=== PATIENT | male | born 1955 | race Caucasian/White ===

== ENCOUNTER 2021-10-08 09:12 | Inpatient (IN) | payer MEDICARE, OTHER ==
[~2021-10-08] VITALS: Ht 182.9 cm; Wt 168.1 kg
[~2021-10-08 09:12] MED LIST: FLEXERIL5 MG PO; MEDROL 4MG DOSEP4 MG PO
[2021-10-08 10:29] LABS: BASOPHIL 0.4 % (0-2); EOSINOPHIL 0.2 % (0-7); HCT 49.8 % (42.0-52.0); HGB 17.3 g/dl (13.2-18.0); MCH 31.7 pg (25.0-31.0); MCHC 34.7 g/dL (32.0-36.0); MCV 91.2 fL (78.0-100.0); MONOCYTE 3.5 % (0-12); MPV 10.1 fL (6.0-9.5); NEUTROPHIL 86.2 % (41-80); NRBC 0; PLT 225 K/uL (150-400); RBC 5.46 M/uL (4.70-6.00); RDW 12.7 % (11.5-14.0); WBC 10.7 K/uL (4.0-10.5)
[2021-10-08 10:37] LABS: PROTHROMBIN TIME 12.6 SECONDS (11.8-13.4); PTT 36.5 SECONDS (24.4-34.7)
[2021-10-08 10:38] LABS: D-DIMER 0.48 ug/mLFEU (0.00-0.41)
[2021-10-08 10:48] LABS: LACTIC ACID 1.4 mmol/L (0.4-1.9)
[2021-10-08 10:51] LABS: BILIRUBIN - TOTAL 0.9 mg/dL (0.2-1.0); CREATININE 0.61 mg/dL (0.67-1.17); GLOBULIN (CALCULATION) 5.5 g/dL; MAGNESIUM 1.8 mg/dL (1.8-2.4); POTASSIUM 3.8 mmol/L (3.5-5.1); TOTAL PROTEIN 9.5 g/dL (6.4-8.2)
[2021-10-08 10:52] LABS: CORONAVIRUS 2019 SARS-COV-2 NEGATIVE (NEGATIVE); INFLUENZA A NAA NEGATIVE (NEGATIVE)
[2021-10-08 14:44] LABS: C-REACTIVE PROTEIN 0.9 mg/dL (<=0.90)
[2021-10-08] MEDS ORDERED: PERCOCET 7.5/321 TAB PO (19:37)
[2021-10-08] MEDS ORDERED: DOXEPIN HCL75 MG PO (19:39)
[2021-10-09 05:53] LABS: BASOPHIL 0.5 % (0-2); EOSINOPHIL 0.4 % (0-7); HGB 15.4 g/dl (13.2-18.0); LYMPHOCYTE 14.4 % (15-48); MCH 31.8 pg (25.0-31.0); MCHC 34.2 g/dL (32.0-36.0); MONOCYTE 6.9 % (0-12); MPV 10.2 fL (6.0-9.5); NRBC 0; PLT 227 K/uL (150-400); RBC 4.84 M/uL (4.70-6.00); WBC 12.1 K/uL (4.0-10.5)
[2021-10-09 06:23] LABS: IRON % SATURATION 16.8 %SAT (20-50)
[2021-10-09 07:14] LABS: CREATININE 0.93 mg/dL (0.67-1.17); MAGNESIUM 2.3 mg/dL (1.8-2.4); PHOSPHORUS 6.1 mg/dL (2.6-4.7); POTASSIUM 3.2 mmol/L (3.5-5.1)
[2021-10-10 06:37] LABS: EOSINOPHIL 1.3 % (0-7); HGB 16.2 g/dl (13.2-18.0); LYMPHOCYTE 14.5 % (15-48); MCH 32.5 pg (25.0-31.0); MCHC 34.5 g/dL (32.0-36.0); MCV 94.2 fL (78.0-100.0); MONOCYTE 6.7 % (0-12); MPV 10.4 fL (6.0-9.5); NEUTROPHIL 75.8 % (41-80); NRBC 0; PLT 223 K/uL (150-400); RBC 4.99 M/uL (4.70-6.00); RDW 13.2 % (11.5-14.0); WBC 10.3 K/uL (4.0-10.5)
[2021-10-10 06:59] LABS: IRON % SATURATION 24.2 %SAT (20-50)
[2021-10-10 07:09] LABS: BUN/CREAT RATIO (CALC) 27.1 RATIO; CREATININE 0.7 mg/dL (0.67-1.17); MAGNESIUM 2.3 mg/dL (1.8-2.4); POTASSIUM 3.9 mmol/L (3.5-5.1)
--- NOTE | 2021-10-10 12:19 | NUR ---
PT WILL REQUIRE O2 @ 4l. REFERRAL SENT TO [facility] TO DELIVER A PORTABLE TO THE HOSPITAL AND A CONCENTRATOR TO THE HOME.
--- NOTE | 2021-10-10 13:01 | NUR ---
MET WITH PT. HE ADVISED THAT HE WOULD LIKE HIS O2 FROM [facility] AND WOULD LIKE [facility] FOR HH. PT. WILL D/C HOME. PLEASE NOTIFY [facility] WITH [facility] IF PT DISCHARGES OVER THE WEEKEND. [phone]
[2021-10-11 03:59] LABS: BUN/CREAT RATIO (CALC) 31.1 RATIO; CREATININE 0.74 mg/dL (0.67-1.17); POTASSIUM 3.7 mmol/L (3.5-5.1)
[2021-10-12 06:23] LABS: BASOPHIL 0.7 % (0-2); EOSINOPHIL 0.9 % (0-7); HCT 52.5 % (42.0-52.0); HGB 18.1 g/dl (13.2-18.0); LYMPHOCYTE 17.9 % (15-48); MCH 32.4 pg (25.0-31.0); MCHC 34.5 g/dL (32.0-36.0); MCV 93.9 fL (78.0-100.0); MONOCYTE 6.8 % (0-12); MPV 9.9 fL (6.0-9.5); NRBC 0; PLT 257 K/uL (150-400); RBC 5.59 M/uL (4.70-6.00); RDW 12.9 % (11.5-14.0); WBC 11.5 K/uL (4.0-10.5)
[2021-10-12 06:42] LABS: BUN/CREAT RATIO (CALC) 36.4 RATIO; CREATININE 0.88 mg/dL (0.67-1.17); PHOSPHORUS 4.5 mg/dL (2.6-4.7); POTASSIUM 3.4 mmol/L (3.5-5.1)
[2021-10-12] MEDS ORDERED: LEVEMIR VI100 UNITS/ SC (15:14)
[2021-10-12] MEDS ORDERED: BUMEX1 MG PO (15:14)
[2021-10-12] MEDS ORDERED: REQUIP1 MG PO (15:15)
[2021-10-12] MEDS ORDERED: PREDNISONE 20MG20 MG PO (15:15)
[2021-10-13] MEDS ORDERED: GABAPENTIN 100100 MG PO (19:11)
== END 2021-10-12 16:07 | disposition home or self-care (01) | DRG 205 ==
LOC: FER 09:12 → FMS 12:21
PROVIDERS: Emergency Medicine; Internal Medicine Cardiovascular Disease; Nurse Practitioner; Nurse Practitioner Acute Care; ADMIT Internal Medicine
DX: M94.0 Chondrocostal junction syndrome [Tietze] (principal); J96.01 Acute respiratory failure with hypoxia; J98.11 Atelectasis; E87.3 Alkalosis; E66.2 Morbid (severe) obesity with alveolar hypoventilation; I50.32 Chronic diastolic (congestive) heart failure; Z68.42 Body mass index [BMI] 45.0-49.9, adult; Z20.822 Contact with and (suspected) exposure to COVID-19; I11.0 Hypertensive heart disease with heart failure; E11.65 Type 2 diabetes mellitus with hyperglycemia; E11.40 Type 2 diabetes mellitus with diabetic neuropathy, unspecified; G25.81 Restless legs syndrome; M48.14 Ankylosing hyperostosis [Forestier], thoracic region; F03.90 Unspecified dementia, unspecified severity, without behavioral disturbance, psychotic disturbance, mood disturbance, and anxiety; Z98.1 Arthrodesis status; Z79.899 Other long term (current) drug therapy
CPT/HCPCS: 36415; 36600; 71045; 71275; 72128; 80048; 80053; 80202; 82728; 82803; 83036; 83540; 83550; 83605; 83735; 83880; 84100; 84145; 84484; 85025; 85379; 85610; 85730; 86140; 87040; 87077; 87186; 93005; 94010; 94640; 94660; 94760; 94762; J1170; J1650; J1815; J1885; J1940; J2060; J2270; J2405; J3370; J3475; J7040; J7050; J7512; Q9967; U0002

== ENCOUNTER 2021-10-13 09:37 | Day surgery (SDCO) | payer MEDICARE, OTHER ==
[~2021-10-13] VITALS: Ht 182.9 cm; Wt 161.3 kg
[~2021-10-13 09:37] MED LIST changes: +BUMEX1 MG PO; +DOXEPIN HCL75 MG PO; +LEVEMIR VI100 UNITS/ SC; +PERCOCET 7.5/321 TAB PO; +PREDNISONE 20MG20 MG PO; +REQUIP1 MG PO
[2021-10-13 10:05] LABS: BASOPHIL 0.8 % (0-2); EOSINOPHIL 0.7 % (0-7); HCT 51.1 % (42.0-52.0); LYMPHOCYTE 18.7 % (15-48); MCH 32.7 pg (25.0-31.0); MCHC 35.2 g/dL (32.0-36.0); MCV 92.7 fL (78.0-100.0); MONOCYTE 7.1 % (0-12); MPV 10.2 fL (6.0-9.5); NRBC 0; PLT 274 K/uL (150-400); RBC 5.51 M/uL (4.70-6.00); RDW 12.9 % (11.5-14.0); WBC 13.7 K/uL (4.0-10.5)
[2021-10-13 11:02] LABS: ALBUMIN 3.8 g/dL (3.4-5.0); ALKALINE PHOSHATASE 84 U/L (46-116); ALT <6 U/L (16-63); AST 51 U/L (15-37); BILIRUBIN - TOTAL 1.7 mg/dL (0.2-1.0); BUN 49 mg/dL (7-18); BUN/CREAT RATIO (CALC) 43.4 RATIO; CHLORIDE 96 mmol/L (98-107); CO2 (BICARBONATE) 21 mmol/L (21-32); CREATININE 1.13 mg/dL (0.67-1.17); GLOBULIN (CALCULATION) 4.9 g/dL; GLUCOSE 286 mg/dL (74-106); POTASSIUM 3.7 mmol/L (3.5-5.1); TOTAL PROTEIN 8.7 g/dL (6.4-8.2)
[2021-10-13 12:55] LABS: CORONAVIRUS 2019 SARS-COV-2 NEGATIVE (NEGATIVE); INFLUENZA A NAA NEGATIVE (NEGATIVE)
[2021-10-13] MEDS ORDERED: GABAPENTIN 100100 MG PO (19:11)
[2021-10-14 05:48] LABS: HCT 50.1 % (42.0-52.0); HGB 17.2 g/dl (13.2-18.0); MCHC 34.3 g/dL (32.0-36.0); MCV 93.1 fL (78.0-100.0); RBC 5.38 M/uL (4.70-6.00); RDW 12.7 % (11.5-14.0); WBC 7.5 K/uL (4.0-10.5)
[2021-10-14 06:10] LABS: BUN/CREAT RATIO (CALC) 43.1 RATIO; CREATININE 1.3 mg/dL (0.67-1.17); POTASSIUM 4.4 mmol/L (3.5-5.1)
[2021-10-14 08:18] LABS: ALBUMIN 3.7 g/dL (3.4-5.0); BILIRUBIN - DIRECT 0.5 mg/dL (0.00-0.20); BILIRUBIN - TOTAL 1.5 mg/dL (0.2-1.0); GLOBULIN (CALCULATION) 4.1 g/dL; TOTAL PROTEIN 7.8 g/dL (6.4-8.2)
--- NOTE | 2021-10-15 05:26 | NUR ---
DAUGHTER OF PT: STERLING GARCIA [phone]
[2021-10-15 06:20] LABS: BASOPHIL 0.2 % (0-2); EOSINOPHIL 0 % (0-7); HCT 47.6 % (42.0-52.0); HGB 16.9 g/dl (13.2-18.0); LYMPHOCYTE 9.8 % (15-48); MCH 32.4 pg (25.0-31.0); MCHC 35.5 g/dL (32.0-36.0); MCV 91.4 fL (78.0-100.0); MONOCYTE 4.9 % (0-12); MPV 10.3 fL (6.0-9.5); NEUTROPHIL 84.5 % (41-80); NRBC 0; PLT 251 K/uL (150-400); RBC 5.21 M/uL (4.70-6.00); RDW 12.5 % (11.5-14.0); WBC 10.9 K/uL (4.0-10.5)
[2021-10-15 06:33] LABS: IRON % SATURATION 39.4 %SAT (20-50)
[2021-10-15 06:56] LABS: ALBUMIN 3.6 g/dL (3.4-5.0); BILIRUBIN - DIRECT 0.3 mg/dL (0.00-0.20); BILIRUBIN - TOTAL 1.1 mg/dL (0.2-1.0); BUN/CREAT RATIO (CALC) 45.5 RATIO; CREATININE 0.99 mg/dL (0.67-1.17); GLOBULIN (CALCULATION) 4.4 g/dL; POTASSIUM 4.3 mmol/L (3.5-5.1)
--- NOTE | 2021-10-15 13:17 | NUR ---
PT IS CURRENT WITH [facility] . HE HAS AN O2 CONCENTRATOR AT HOME AND HAS A PORTABLE O2 TANK IN HIS ROOM. HE ALSO HAS A CPAP MACHINE.
[2021-10-15] MEDS ORDERED: REQUIP0.25 MG PO (13:46)
[2021-10-15] MEDS ORDERED: DULCOLAX5 MG PO (13:47)
[2021-10-15] MEDS ORDERED: PANTOPRAZOLE SO40 MG PO (13:48)
[2021-10-15] MEDS ORDERED: LIDOCAINE PAIN1 EACH TOP (13:49)
[2021-10-15] MEDS ORDERED: BACLOFEN 10MG T10 MG PO (14:35)
[2021-10-16 03:10] LABS: HBSAG SCREEN Negative (Negative); HEP A AB, IGM Negative (Negative); HEP B CORE AB, IGM Negative (Negative); HEP C VIRUS AB <0.1 (0.0-0.9)
== END 2021-10-15 16:06 | disposition home health service (06) ==
LOC: FER 09:37 → FMS 15:49
PROVIDERS: Emergency Medicine; Nurse Practitioner; Nurse Practitioner Acute Care; ADMIT Internal Medicine
DX: K80.20 Calculus of gallbladder without cholecystitis without obstruction (principal); N17.9 Acute kidney failure, unspecified; M94.0 Chondrocostal junction syndrome [Tietze]; G89.29 Other chronic pain; M54.9 Dorsalgia, unspecified; G25.81 Restless legs syndrome; E11.40 Type 2 diabetes mellitus with diabetic neuropathy, unspecified; K76.0 Fatty (change of) liver, not elsewhere classified; I11.9 Hypertensive heart disease without heart failure; F03.90 Unspecified dementia, unspecified severity, without behavioral disturbance, psychotic disturbance, mood disturbance, and anxiety; M51.36 Other intervertebral disc degeneration, lumbar region; E66.2 Morbid (severe) obesity with alveolar hypoventilation; Z68.42 Body mass index [BMI] 45.0-49.9, adult; Z79.4 Long term (current) use of insulin; Z79.52 Long term (current) use of systemic steroids; Z79.899 Other long term (current) drug therapy; Z98.1 Arthrodesis status; Z99.81 Dependence on supplemental oxygen; Z20.822 Contact with and (suspected) exposure to COVID-19
CPT/HCPCS: 36415; 36600; 71045; 76705; 78226; 80048; 80053; 80074; 80076; 82140; 82248; 82728; 82803; 82977; 83540; 83550; 83615; 83880; 84145; 84484; 85025; 93005; 94010; 94668; A9537; G0378; J1170; J1650; J1815; J1885; J2270; J2405; J2930; U0002

== ENCOUNTER 2021-11-20 15:14 | Emergency (ER) | payer MEDICARE, OTHER ==
[~2021-11-20 15:14] MED LIST changes: +BACLOFEN 10MG T10 MG PO; +DULCOLAX5 MG PO; +GABAPENTIN 100100 MG PO; +LIDOCAINE PAIN1 EACH TOP; +PANTOPRAZOLE SO40 MG PO; +REQUIP0.25 MG PO
[2021-11-20] MEDS ORDERED: DICLOFENAC SODI50 MG PO (15:46)
== END 2021-11-20 15:52 | disposition home or self-care (01) ==
LOC: FER 15:14
DX: M25.511 Pain in right shoulder (principal); E11.9 Type 2 diabetes mellitus without complications; Z79.4 Long term (current) use of insulin; W19.XXXA Unspecified fall, initial encounter
CPT/HCPCS: 99283; J1885

== ENCOUNTER 2022-04-01 14:03 | Emergency (ER) | payer OTHER ==
[~2022-04-01 14:03] MED LIST changes: +DICLOFENAC SODI50 MG PO
[2022-04-01] MEDS ORDERED: MEDROL 4MG DOSEP4 MG PO (16:42)
== END 2022-04-01 16:56 | disposition home or self-care (01) ==
LOC: FER 14:03
DX: M51.34 Other intervertebral disc degeneration, thoracic region (principal); M51.36 Other intervertebral disc degeneration, lumbar region; I10 Essential (primary) hypertension; E11.9 Type 2 diabetes mellitus without complications; Z79.4 Long term (current) use of insulin; Z79.899 Other long term (current) drug therapy
CPT/HCPCS: 72128; 72131; J1885

== ENCOUNTER 2022-04-02 12:26 | Emergency (ER) | payer OTHER ==
[2022-04-02 13:33] LABS: BASOPHIL 0.5 % (0-2); EOSINOPHIL 0.9 % (0-7); HCT 36.8 % (42.0-52.0); HGB 13.1 g/dl (13.2-18.0); MCH 33.2 pg (25.0-31.0); MCHC 35.6 g/dL (32.0-36.0); MCV 93.2 fL (78.0-100.0); MONOCYTE 7.8 % (0-12); NEUTROPHIL 75.4 % (41-80); NRBC 0; PLT 189 K/uL (150-400); RBC 3.95 M/uL (4.70-6.00); RDW 12.3 % (11.5-14.0); WBC 7.5 K/uL (4.0-10.5)
[2022-04-02 13:39] LABS: INR 0.98 (0.9-1.2); PROTHROMBIN TIME 12.7 SECONDS (11.9-13.9); PTT 31.2 SECONDS (24.9-34.6)
[2022-04-02 13:58] LABS: ALBUMIN 3.3 g/dL (3.4-5.0); ALKALINE PHOSHATASE 80 U/L (46-116); ALT 36 U/L (16-63); AST 15 U/L (15-37); BILIRUBIN - TOTAL 0.8 mg/dL (0.2-1.0); BUN 17 mg/dL (7-18); CHLORIDE 102 mmol/L (98-107); CO2 (BICARBONATE) 28 mmol/L (21-32); GLOBULIN (CALCULATION) 3.7 g/dL; GLUCOSE 197 mg/dL (74-106); POTASSIUM 3.3 mmol/L (3.5-5.1)
[2022-04-02 14:12] LABS: BILIRUBIN NEGATIVE (NEGATIVE); BLOOD NEGATIVE Ery/uL (NEGATIVE); CLARITY CLEAR (CLEAR); COLOR YELLOW (YELLOW); GLUCOSE (U) 3+ mg/dL (NORMAL); LEUKOCYTES NEGATIVE Leu/uL (NEGATIVE); NITRITE NEGATIVE (NEGATIVE); PROTEIN TRACE (LOW) mg/dL (NEGATIVE); SPECIFIC GRAVITY 1.015 (1.001-1.030); pH 7.5 (5.0-9.0)
[2022-04-02 14:18] LABS: ECSTASY (MDMA) NEGATIVE (NEGATIVE); MARIJUANA (THC) NEGATIVE (NEGATIVE); METHADONE NEGATIVE (NEGATIVE); OPIATES NEGATIVE (NEGATIVE)
[2022-04-02 14:19] LABS: AMPHETAMINES NEGATIVE (NEGATIVE); BARBITURATES NEGATIVE (NEGATIVE); OXYCODONE POSITIVE (NEGATIVE)
[2022-04-02 14:30] LABS: ACETAMINOPHEN (TYLENOL) < 2.0 ug/mL (10.0-30.0)
[2022-04-02 14:48] LABS: INFLUENZA A NAA NEGATIVE (NEGATIVE)
[2022-04-02 14:52] LABS: CORONAVIRUS 2019 SARS-COV-2 POSITIVE (NEGATIVE)
== END 2022-04-02 23:30 ==
LOC: FER 12:26
PROVIDERS: Emergency Medicine
DX: F33.1 Major depressive disorder, recurrent, moderate (principal); R45.851 Suicidal ideations; U07.1 COVID-19; I10 Essential (primary) hypertension; E11.9 Type 2 diabetes mellitus without complications; Z79.4 Long term (current) use of insulin
CPT/HCPCS: 36415; 71045; 80053; 80305; 81001; 84484; 85025; 85610; 85730; 93005; G0480; J1170; U0002